=== PATIENT | male | born 1975 | race Caucasian/White ===

== ENCOUNTER 2024-07-13 05:10 | Emergency (ER) | payer BC, SELFPAY ==
[2024-07-13 05:14] VITALS: BP 132/87
[2024-07-13 05:18] VITALS: BP 132/87
--- NOTE | 2024-07-13 06:13 | ED.GENMED ---
History of Present Illness
<Anne Phan MD, Resident - Last Filed: 07/13/24 08:20>
General
Chief Complaint: Breathing Problem
Source: patient and family
Exam Limitations: none
Time Seen by Provider: 07/13/24 06:00
Travel History
Do you have any symptoms of coronavirus? Fever > 100 degrees, chills, cough, shortness of breath, sore throat, loss of taste or smell, muscle aches, or headache?: No
History of Present Illness
History of Present Illness:
This is a 49 year old male patient with PMH of GERD who presents to the hospital with concerns of an ongoing cough for the past 3 weeks. He reports that his cough started three weeks ago which was associated with 'brownish' phlegm. He denies any
history of fever, chills, or abdominal pain. He also states that he sometimes woke up at night and felt as though he was gasping for air which he has never experienced before. This prompted him to go to his PCP where he states he was given a
'penicillin' but did not provide much relief. After a week, he went back to his PCP who prescribed him a course of steroids which also did not help him much. 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
symptoms. He denies any history of travel.
Past History
<Anne Phan MD, Resident - Last Filed: 07/13/24 08:20>
Past History
ED Past Medical History: GERD
ED Past Surgical History: Orthopedic and Other (R clavical repair with screws and plate)
Social History
Tobacco: Non-smoker
Alcohol: Occasional
Personal:
Living: with family
Employment: Employed
Review of Systems
<Anne Phan MD, Resident - Last Filed: 07/13/24 08:20>
Review of Systems
Allergies reviewed?: Yes
Constitutional: Denies fever or chills
Respiratory: Reports cough
ABD/GI: Denies abdominal pain, nausea, vomiting, diarrhea or constipated
Phy Exam
<Anne Phan MD, Resident - Last Filed: 07/13/24 08:20>
General Physical Exam
General Presentation: no apparent distress
Eye Exam
Eye Exam: EOMI
Cardiovascular Exam
Cardiovascular Exam: regular rate/rhythm
Heart Sounds: normal
Pulmonary Exam
Pulmonary Exam: lungs clear
Cough: productive cough
Gastrointestinal Exam
Gastrointestinal Exam: non tender, soft and non distended
Neurological Exam
Neurological Exam: oriented x3
Musculoskeletal Exam
Musculoskeletal Exam: no edema
Skin Exam
Skin Exam: warm/dry
Psychiatric Exam
Psychiatric Exam: normal mood/affect
Scores
<Anne Phan MD, Resident - Last Filed: 07/13/24 08:20>
Heart Failure Risk
Heart Failure Risk Score: Not Applicable
Course
<Anne Phan MD, Resident - Last Filed: 07/13/24 08:20>
Orders/Labs/Results
Orders:
Orders
07/13/24 05:32
Chest [CR Chest - 2 Views ] Urgent
Comment:
Reason For Exam: cough
07/13/24 06:36
Ipratropium/Albuterol Sulfate [Duoneb] 3 ml INH R NOW ONE
07/13/24 06:41
Electrocardiogram (*1) Urgent
Reason for Study: Shortness of Breath
EKG- Treatment ONCE
07/13/24 06:52
Complete Blood Count/With Diff Urgent
Comprehensive Metabolic Panel Urgent
Troponin I Urgent
Abnormal Lab Results
07/13/24
06:52
MCHC 32.3 L g/dL
(33.0-37.0)
Absolute Lymphs (auto) 1.1 L 10^3/uL
(1.2-3.4)
Immature Gran % 0.6 H %
(0-0.5)
Lymphocytes % 15.5 L %
(20.5-51.1)
Chloride 108 H mmol/L
(98-107)
Glucose 110 H mg/dl
(70-99)
Total Protein 5.9 L g/dl
(6.3-8.2)
07/13/24 06:52
07/13/24 06:52
Vital Signs
Initial and Last Documented VS:
Initial Vital Signs
Pulse Resp BP Pulse Ox
63 18 132/87 98
07/13/24 05:14 07/13/24 05:14 07/13/24 05:14 07/13/24 05:14
Last Documented Vital Signs
Temp Pulse Resp BP Pulse Ox
97.8 F 85 16 126/74 98
07/13/24 05:18 07/13/24 07:54 07/13/24 07:54 07/13/24 07:54 07/13/24 07:54
<Pete Bryant, DO - Last Filed: 07/13/24 07:45>
Orders/Labs/Results
Orders:
Orders
07/13/24 05:32
Chest [CR Chest - 2 Views ] Urgent
Comment:
Reason For Exam: cough
07/13/24 06:36
Ipratropium/Albuterol Sulfate [Duoneb] 3 ml INH R NOW ONE
07/13/24 06:41
Electrocardiogram (*1) Urgent
Reason for Study: Shortness of Breath
EKG- Treatment ONCE
07/13/24 06:52
Complete Blood Count/With Diff Urgent
Comprehensive Metabolic Panel Urgent
Troponin I Urgent
Abnormal Lab Results
07/13/24
06:52
MCHC 32.3 L g/dL
(33.0-37.0)
Absolute Lymphs (auto) 1.1 L 10^3/uL
(1.2-3.4)
Immature Gran % 0.6 H %
(0-0.5)
Lymphocytes % 15.5 L %
(20.5-51.1)
Chloride 108 H mmol/L
(98-107)
Glucose 110 H mg/dl
(70-99)
Total Protein 5.9 L g/dl
(6.3-8.2)
07/13/24 06:52
07/13/24 06:52
Vital Signs
Initial and Last Documented VS:
Initial Vital Signs
Pulse Resp BP Pulse Ox
63 18 132/87 98
07/13/24 05:14 07/13/24 05:14 07/13/24 05:14 07/13/24 05:14
Last Documented Vital Signs
Temp Pulse Resp BP Pulse Ox
97.8 F 85 16 126/74 98
07/13/24 05:18 07/13/24 07:54 07/13/24 07:54 07/13/24 07:54 07/13/24 07:54
<Anne Phan MD, Resident - Last Filed: 07/13/24 08:20>
*Critical Care Note
Total Time (30-74mins, 75-104mins- exclusive of procedures): Not Applicable
<Pete Bryant DO - Last Filed: 07/13/24 07:45>
*EKG
Interpreted by ED Provider?: Yes
EKG Intrepretation Date: 07/13/24
Interpretation: normal (Normal sinus rhythm, ventricular rate 62 bpm, normal axis, no STEMI)
<Anne Phan MD, Resident - Last Filed: 07/13/24 08:20>
Update Note
Update Note:
His EKG and CXR were unremarkable. CBC and CMP/trop with insignificant findings. Started on Duonebs with noted improvement. Discussed with patient about discharing with BALTA and LABA and making sure to rinse mouth after Advair use to prevent oral
thrush. F/u with PCP in 1 week.
ED Attending Note
<Anne Phan MD, Resident - Last Filed: 07/13/24 08:20>
-
Portions of this chart may have been created with voice recognition software.� Occasional wrong word or��sound alike� substitutions may have occurred due to the inherent limitations of voice recognition software.
<Pete Bryant, DO - Last Filed: 07/13/24 07:45>
ED Attending Note
Patient seen and examined by attending physician: Yes
I performed a history and physical exam of patient and discussed management with resident, I reviewed resident's note and agree with documented findings and plan of care.: Yes
ED Attending Note:
I have seen and evaluated the patient with a [id number] encounter. I have spoken to the resident and involved in the medical history, the physical exam, medical decision making.
Evaluation and management service: agree unless noted differently below.
Results interpretation: agree unless noted differently below.
Focused HPI: 49-year-old male presenting with viral URI symptoms for the past several weeks. He has seen his primary care doctor twice and has been on antibiotics and steroids. Patient does acknowledge that similar symptoms did improve. On the
initial HPI for the resident, patient denied any chest pain. However, on my HPI, patient does acknowledge that he has had small amount of chest pressure that appear to be nonexertional
Patient states cough is worse when he lays down and the productive aspect of the clears with the day
Physical exam: Sitting in bed comfortably. Mild postnasal drip. No stridor. Lungs clear. Mild bronchospastic cough noted. No leg edema. Heart regular rate and rhythm
Medical Decision Making: Given ongoing symptoms, will obtain chest x-ray. Given the chest discomfort, will give troponin. Doubt ACS given not exertional component. Screening EKG is nonischemic. Will give DuoNeb and assess for symptomatic relief.
Patient will likely require inhaled steroid or possibly steroid taper
Discharge Plan
Departure
Patient Disposition: Home (Routine Discharge)
Date of Disposition: 07/13/24
Time of Disposition: 07:37
Patient with high blood pressure during this ER visit?: No
Discharge Problem:
Acute bronchospasm
Instructions: Acute Bronchitis, Adult (DC)
Prescriptions:
New
fluticasone propion-salmeterol [Advair Diskus] 250-50 mcg/dose blister with device
1 inh inhalation BID Qty: 60 0RF
albuterol sulfate 90 mcg/actuation HFA aerosol inhaler
2 puff inhalation Q6H PRN (Reason: shortness of breath or wheezing) Qty: 6.7 0RF
Referrals:
Shilo Garcia MD [Family Provider] -
Activity Restrictions/Additional Instructions:
If encountering any severe ongoing symptoms such as high grade fever or severe abdominal pain, please contact your PCP or arrive to ED.
Follow up with PCP in 1 week.
Interventions
Interventions:
*Risk Screen - Suicide Last Done: 07/13/24 05:14
*General Assessment Last Done: 07/13/24 05:14
*Neglect/Abuse Screening Last Done: 07/13/24 05:31
ED- Fall Risk Assessment Last Done: 07/13/24 05:31
*ED COVID-19 Vaccine History Last Done: 07/13/24 05:19
*Nursing Disposition Last Done: 07/13/24 07:54
ED- Cardiac Assessment Last Done: 07/13/24 05:31
ED- Pulmonary Assessment Last Done: 07/13/24 05:31
Discharge Date and Time
Discharge Date/Time: 07/13/24 08:04
Print Language: ICELANDIC
[2024-07-13] MEDS: DUONEB 3 ML INH (06:49)
[2024-07-13 07:12] LABS: % Basophils 0.4 % (0-2); % Eosinophils 1.5 % (0-6); % Immature Granulocytes 0.6 % (0-0.5); % Lymphocytes 15.5 % (20.5-51.1); % Monocytes 7.8 % (1.7-9.3); % Neutrophils 74.2 % (42.2-75.2); Absolute Eosinophils 0.1 10^3/uL (0-0.7); Absolute Lymphocytes 1.1 10^3/uL (1.2-3.4); Absolute Monocytes 0.6 10^3/uL (0.1-0.6); Absolute Neutrophils 5.3 10^3/uL (1.4-6.5); Hematocrit 43.3 % (39.0-52.0); Mean Corp Hgb Conc. 32.3 g/dL (33.0-37.0); Mean Corpuscular Hgb 28.8 pg (27.0-31.0); Mean Corpuscular Volume 89.1 fL (80.0-94.0); Mean Platelet Volume 9.7 fL (7.4-10.4); Nucleated Red Blood Cells % 0 % (-); Platelet Count 191 10^3/uL (130-400); Red Blood Cell Count 4.86 10^6/uL (4.70-6.10); Red Cell Dist. Width 12.6 % (11.5-14.5); White Blood Cell Count 7.2 10^3/uL (4.8-10.8)
[2024-07-13 07:16] LABS: Albumin 3.9 g/dl (3.5-5.0)
[2024-07-13 07:28] LABS: ALT (SGPT) 45 U/L (0-50); AST (SGOT) 25 U/L (17-59); Alkaline Phosphatase 71 U/L (38-126); Blood Urea Nitrogen 18 mg/dl (9-20); Carbon Dioxide 24 mmol/L (22-30); Chloride 108 mmol/L (98-107); Estimated Creatinine Clearance 121 ml/min; Glucose 110 mg/dl (70-99); Potassium 4.8 mmol/L (3.5-5.1); Sodium 142 mmol/L (135-145); Total Bilirubin 0.4 mg/dl (0.2-1.3); Total Protein 5.9 g/dl (6.3-8.2); eGFR > 60.00
[2024-07-13 07:33] LABS: Troponin I < 0.012 ng/ml
[2024-07-13 07:54] VITALS: BP 126/74
== END 2024-07-13 08:04 | disposition home or self-care (01) ==
LOC: EMR 05:10
PROVIDERS: EMERGENCY PHYSICIAN Student in an Organized Health Care Education/Training Program; FAMILY PHYSICIAN Internal Medicine
DX: J98.01 Acute bronchospasm (principal); R07.89 Other chest pain; K21.9 Gastro-esophageal reflux disease without esophagitis
CPT/HCPCS: 94640; 99285; 71046; 80053; 84484; 85025; 93005

== ENCOUNTER 2024-11-04 12:04 | Emergency (ER) | payer BC, SELFPAY ==
[2024-11-04 12:19] VITALS: BMI 29.3
[2024-11-04] MEDS: DILAUDID 0.5 MG IV ×2 (12:21→12:55)
--- NOTE | 2024-11-04 12:22 | ED.GENMED ---
History of Present Illness
General
Chief Complaint: Fall
Source: patient
Exam Limitations: none
Time Seen by Provider: 11/04/24 12:14
History of Present Illness
History of Present Illness:
49-year-old male fell off a piece of equipment. He pushed himself off to avoid landing on sharp metal. Hit the top of his head but mostly complaining of bilateral wrist and hand pain. No chest pain no abdominal pain no neck pain patient got up
and walked. Pain is severe in nature. Last tetanus 2018.
Past History
Past History
ED Past Medical History: GERD
ED Past Surgical History: Orthopedic and Other (R clavical repair with screws and plate)
Social History
Tobacco: Non-smoker
Alcohol: Occasional
Personal:
Living: with family
Employment: Employed
Review of Systems
Review of Systems
All Other Systems: Not applicable
Respiratory: Reports no symptoms
Cardiac: Reports no symptoms
ABD/GI: Reports no symptoms
Phy Exam
Physical Exam
Physical Exam:
TRAUMA EXAM:
VITAL SIGNS: Vital signs reviewed, cooperative
DISTRESS: No active disease
EYES: Pupils reactive, no orbital trauma
NOSE: No deformity or epistaxis
FACE AND SCALP: Mild tenderness right superior scalp with no hematoma or swelling. No facial trauma.
NECK: Collar in place
BACK: Pelvis stable to compression
RESPIRATORY: No distress, breath sounds normal, no tender chest wall
CARDIAC: No murmur, pulses equal and strong
ABDOMEN: Soft nontender bowel sounds normal
SKIN: Skin intact no bleeding, color normal
EXTREMITIES: Tenderness and deformity to the right wrist. Good capillary refill distal pulses. Proximal right forearm nontender. Right shoulder no significant tenderness. Left arm unremarkable towards the left wrist and hand. Mild tenderness to
the wrist left wrist. Deformity to the left hand
NEUROLOGICAL: Alert, oriented, no motor deficits
PSYCH: Mood affect normal
Course
Orders/Labs/Results
Orders:
Orders
11/04/24 12:17
Cardiac Monitoring- Treatment ONCE
11/04/24 12:18
CT Cervical Spine W/o Iv Contr Urgent
Comment:
Reason For Exam: trauma
CT Chest/abd/pel W Iv Cont Urgent
Reason For Exam: trauma
CT Head W/o Iv Contrast Urgent
Comment:
Reason For Exam: trauma
IV Insert/Care/Rem.- Treatment PRN
0.9% Sodium Chloride 1000 ml [Nss] 1,000 ml IV BOLUS
Forearm, Left 2 View [CR Forearm - Left 2 View] Urgent
Comment:
Reason For Exam: trauma
Forearm, Right 2 View [CR Forearm - Right 2 View] Urgent
Comment:
Reason For Exam: trauma
Hand, Left 3 View [CR Hand - Left Min 3 Views] Urgent
Comment:
Reason For Exam: trauma
Hand, Right 3 View [CR Hand - Right Min 3 Views] Urgent
Comment:
Reason For Exam: trauma
11/04/24 12:20
Complete Blood Count/With Diff Urgent
Comprehensive Metabolic Panel Urgent
Lipase Urgent
HYDROmorphone [Dilaudid] 0.5 mg .ROUTE .[facility] ONE
11/04/24 12:21
HYDROmorphone [Dilaudid] 0.5 mg IV NOW STA
11/04/24 12:22
CeFAZolin 1 GRAM [Ancef] 1 gram in 5 ml IV NOW
11/04/24 12:55
HYDROmorphone [Dilaudid] 0.5 mg IV NOW STA
11/04/24 13:28
Volar Right-Treatment ONCE
11/04/24 14:09
CR Hand - Left Min 3 Views Urgent
Reason For Exam: post reduction 3/4
11/04/24 14:10
Aluminium Finger Splint Left ONCE
11/04/24 14:11
Ketorolac [Toradol] 15 mg IV NOW STA
11/04/24 14:53
Ampicillin/Sulbactam 3 G [Unasyn] 3 gm 0.9% Sodium Chloride 100 ml [Nss] 100 ml IV NOW
Abnormal Lab Results
11/04/24
12:20
BUN 24 H mg/dl
(9-20)
Glucose 136 H mg/dl
(70-99)
11/04/24 12:20
11/04/24 12:20
Vital Signs
Initial and Last Documented VS:
Initial Vital Signs
Temp Pulse Resp Pulse Ox
98.0 F 71 18 99
11/04/24 12:05 11/04/24 12:05 11/04/24 12:05 11/04/24 12:05
Last Documented Vital Signs
Temp Pulse Resp BP Pulse Ox
98.0 F 70 13 125/82 99
11/04/24 12:05 11/04/24 14:45 11/04/24 14:45 11/04/24 16:26 11/04/24 13:45
Procedures
Joint/Fracture Reduction
Left Fourth Finger:
Anesthesia/sedation: Other (1% digital block)
Injury was: closed
Further treatement: needs re-check only
Post reduction exam: stable
Capillary Refill: normal
*Critical Care Note
Total Time (30-74mins, 75-104mins- exclusive of procedures): 45
Update Note
Update Note:
Patient has been rechecked multiple times. Reviewed CT findings with patient. Copy of report and abnormalities pointed out although no acute traumatic issues.
Copious irrigation of the third digit was done. Significant irrigation. Was reduced without issue. This was after discussion with orthopedics as to the approach. I do not feel he needs transfer to a trauma center at this time. All his primary
issues are stable. He has no head injury significantly no neck issues no chest or abdominal issues. He is remained very stable. The orthopedic issues can be followed up closely. I will ask ID for their opinion on antibiotics given a farm issue.
Will start Augmentin per ID. Will give a dose of Unasyn now. Toradol. Orthopedic follow-up tomorrow. Wound on the volar aspect of the third digit at the PIP joint is relatively small.
ED Attending Note
-
Portions of this chart may have been created with voice recognition software.� Occasional wrong word or��sound alike� substitutions may have occurred due to the inherent limitations of voice recognition software.
Discharge Plan
Departure
Patient Disposition: Home (Routine Discharge)
Date of Disposition: 11/04/24
Time of Disposition: 14:21
Patient with high blood pressure during this ER visit?: Yes
Discharge Problem:
Open dislocation left third PIP joint, Dislocation left fourth PIP joint en dis, Fracture right distal radius, Minor head injury
Instructions: Wound Care (DC), Head Injury in Adults (DC), Finger Dislocation (DC), BLOOD PRESSURE, Wrist Fracture
Prescriptions:
New
amoxicillin-pot clavulanate 875-125 mg tablet
1 tab PO BID Qty: 14 0RF
hydrocodone-acetaminophen 5-325 mg tablet
1 tab PO Q6H PRN (Reason: Pain) Qty: 14 0RF
No Action
fluticasone propion-salmeterol [Advair Diskus] 250-50 mcg/dose blister with device
1 inh inhalation BID Qty: 60 0RF
albuterol sulfate 90 mcg/actuation HFA aerosol inhaler
2 puff inhalation Q6H PRN (Reason: shortness of breath or wheezing) Qty: 6.7 0RF
Referrals:
Michel Gallagher MD [Active] - Tomorrow
Shilo Garcia MD [Family Provider] -
Activity Restrictions/Additional Instructions:
The prescriptions were sent to your pharmacy
See the orthopedist tomorrow or
Interventions
Interventions:
*Risk Screen - Suicide Last Done: 11/04/24 12:05
*General Assessment Last Done: 11/04/24 12:05
*Neglect/Abuse Screening Last Done: 11/04/24 17:00
*ED- Fall Risk Assessment Last Done: 11/04/24 16:45
*ED COVID-19 Vaccine History Last Done: 11/04/24 12:30
*Nursing Disposition Last Done: 11/04/24 16:45
ED-Musculoskeletal Assessment Last Done: 11/04/24 12:30
ED- Neurological Assessment Last Done: 11/04/24 12:30
ED-Skin Assessment Last Done: 11/04/24 12:30
Discharge Date and Time
Discharge Date/Time: 11/04/24 16:45
Print Language: SAMI
[2024-11-04] MEDS: NSS 1000 IV (12:25)
[2024-11-04 12:29] LABS: % Basophils 0.6 % (0-2); % Immature Granulocytes 0.5 % (0-0.5); % Lymphocytes 28.3 % (20.5-51.1); % Monocytes 8.1 % (1.7-9.3); % Neutrophils 61.5 % (42.2-75.2); Absolute Eosinophils 0.1 10^3/uL (0-0.7); Absolute Lymphocytes 1.8 10^3/uL (1.2-3.4); Absolute Monocytes 0.5 10^3/uL (0.1-0.6); Absolute Neutrophils 3.8 10^3/uL (1.4-6.5); Hematocrit 43.9 % (39.0-52.0); Hemoglobin 15.1 g/dL (13.0-18.0); Mean Corp Hgb Conc. 34.4 g/dL (33.0-37.0); Mean Corpuscular Volume 84.3 fL (80.0-94.0); Mean Platelet Volume 9.8 fL (7.4-10.4); Nucleated Red Blood Cells % 0 % (-); Platelet Count 220 10^3/uL (130-400); Red Blood Cell Count 5.21 10^6/uL (4.70-6.10); Red Cell Dist. Width 12.5 % (11.5-14.5); White Blood Cell Count 6.2 10^3/uL (4.8-10.8)
[2024-11-04 12:40] LABS: ALT (SGPT) 40 U/L (0-50); AST (SGOT) 26 U/L (17-59); Albumin 4.4 g/dl (3.5-5.0); Alkaline Phosphatase 75 U/L (38-126); Blood Urea Nitrogen 24 mg/dl (9-20); Calcium 9.6 mg/dl (8.4-10.2); Carbon Dioxide 25 mmol/L (22-30); Chloride 107 mmol/L (98-107); Estimated Creatinine Clearance 96 ml/min; Glucose 136 mg/dl (70-99); Lipase 142 U/L (23-300); Potassium 4.6 mmol/L (3.5-5.1); Sodium 139 mmol/L (135-145); Total Bilirubin 0.6 mg/dl (0.2-1.3); Total Protein 6.6 g/dl (6.3-8.2); eGFR > 60.00
[2024-11-04] MEDS: ANCEF 5 IV (13:09)
[2024-11-04] MEDS: TORADOL 15 MG IV (14:45)
[2024-11-04 15:15] VITALS: BP 133/79
[2024-11-04] MEDS: UNASYN IV (15:15)
[2024-11-04 16:26] VITALS: BP 125/82
== END 2024-11-04 16:45 | disposition home or self-care (01) ==
LOC: EMR 12:04
PROVIDERS: EMERGENCY PHYSICIAN Emergency Medicine; FAMILY PHYSICIAN Internal Medicine
DX: S52.501A Unspecified fracture of the lower end of right radius, initial encounter for closed fracture (principal); S63.283A Dislocation of proximal interphalangeal joint of left middle finger, initial encounter; S63.285A Dislocation of proximal interphalangeal joint of left ring finger, initial encounter; S61.203A Unspecified open wound of left middle finger without damage to nail, initial encounter; W19.XXXA Unspecified fall, initial encounter
CPT/HCPCS: 26770 ×2; 96374; 96375; 96376; 96361; 29125; 70450; 71260; 72125; 73090; 73130; 74177; 80053; 83690; 85025; 99291; Q9967

== ENCOUNTER 2025-04-26 20:50 | Inpatient (IN) | payer BC, SELFPAY ==
[2025-04-26] VITALS (7 sets, daily range): BP systolic 111–142; BP diastolic 72–89; BMI 27.8; BMI 28.6
[2025-04-26 15:07] LABS: Glucose - Point of Care 147 mg/dl (70-99)
[2025-04-26 16:05] LABS: Urine Character Cloudy (Clear)
[2025-04-26 16:46] LABS: Urine Red Blood Cell 16-20 /HPF (0-2); Urine White Cell 30-40 /HPF (0-5)
--- NOTE | 2025-04-26 16:57 | ED.GENMED ---
History of Present Illness
General
Chief Complaint: Urinary Symptoms
Source: patient
Time Seen by Provider: 04/26/25 16:49
History of Present Illness
History of Present Illness:
50-year-old male presents to the emergency room complaining of fever, chills, urinary frequency, dysuria as well as lower abdominal pain. Patient feels pain in his rectum as well. No nausea or vomiting. Patient denies any history of urinary tract
infections. He denies any previous abdominal surgery. He has been taking Tylenol and ibuprofen for symptoms. Patient states he urinated 8 times just in the past hour.
Past History
Past History
ED Past Medical History: GERD
ED Past Surgical History: Orthopedic and Other (R clavical repair with screws and plate)
Social History
Tobacco: Non-smoker
Alcohol: Occasional
Personal:
Living: with family
Employment: Employed
Phy Exam
Physical Exam
Physical Exam:
General: Awake, Alert, Oriented X3. No acute distress.
Vitals: unremarkable
Head: Atraumatic
Eyes: Pupils equal, EOMI
Throat: Airway intact, no exudates
Neck: Trachea midline
Lungs: Clear and equal b/l
Heart: Regular rate, no murmurs
Abd: Soft, tender to palpation bilateral lower abdomen, No pulsatile mass
Back: No CVA tenderness to percussion
Rectal:
Neuro: Nonfocal
Skin: Warm, dry, no rash
Extremities: pulses equal b/l, no edema
Course
Orders/Labs/Results
Orders:
Orders
04/26/25 15:11
Urinalysis Reflex To Culture Urgent
Date Specimen was Collected: 04/26/25
Time Specimen was Collected: 15:09
Urine Microscopic Reflex Cult Urgent
Urine Culture Urgent
JULIO Source: U
Specimen Description:
Date Specimen was Collected: 04/26/25
Time Specimen was Collected: 15:09
04/26/25 16:57
CT Abd/pelvis W Iv Cont Urgent
Comment:
Reason For Exam: lower abd pain/pelvic pain
04/26/25 16:59
0.9% Sodium Chloride 1000 ml [Nss] 1,000 ml IV BOLUS
Ketorolac [Toradol] 15 mg IV NOW STA
Phenazopyridine HCl [Pyridium] 200 mg PO NOW STA
04/26/25 17:10
Basic Metabolic Panel Urgent
Complete Blood Count/With Diff Urgent
04/26/25 19:25
HYDROmorphone [Dilaudid] 1 mg IV NOW STA
04/26/25 19:46
CefTRIAXone [Rocephin] 2,000 mg IV NOW STA
04/26/25 19:47
Sterile Water [Sterile Water For Injection] 20 ml .ROUTE .[facility]
Abnormal Lab Results
04/26/25 04/26/25 04/26/25
15:06 15:11 17:10
RBC 4.69 L 10^6/uL
(4.70-6.10)
MPV 10.6 H fL
(7.4-10.4)
Absolute Neuts (auto) 7.4 H 10^3/uL
(1.4-6.5)
Absolute Lymphs (auto) 0.8 L 10^3/uL
(1.2-3.4)
Neutrophils % 82.6 H %
(42.2-75.2)
Lymphocytes % 8.9 L %
(20.5-51.1)
Chloride 108 H mmol/L
(98-107)
Glucose 113 H mg/dl
(70-99)
Urine Ketones 1+ A
(Negative)
Ur Occult Blood Reflex 4+ A
(Negative)
Urine Nitrite (Reflex) Positive A
(Negative)
Leukocyte Esterase Rfl 3+ A
(Negative)
Urine RBC 16-20 A /HPF
(0-2)
Urine WBC (Reflex) 30-40 A /HPF
(0-5)
Urine Bacteria (Reflex) Moderate A
(Negative)
Urine Albumin (Reflex) 2+ A
(Neg - Trace)
POC Glucose 147 H mg/dl
(70-99)
04/26/25 17:10
04/26/25 17:10
Vital Signs
Initial and Last Documented VS:
Initial Vital Signs
Temp Pulse Resp BP Pulse Ox
98.8 F 83 16 122/82 98
04/26/25 15:05 04/26/25 15:05 04/26/25 15:05 04/26/25 15:05 04/26/25 15:05
Last Documented Vital Signs
Temp Pulse Resp BP Pulse Ox
98.2 F 83 16 128/89 98
04/26/25 18:39 04/26/25 15:05 04/26/25 15:05 04/26/25 18:29 04/26/25 19:30
MDM/Problems Addressed
Differential Diagnosis Includes:
Prostatitis, diverticulitis, urinary tract infection, kidney stone
MDM/Problems Addressed:
Patient presents with significant rectal and lower abdominal pain, dysuria. Has had fevers at home patient appears uncomfortable. Has significant tenderness CT of the abdomen pelvis shows enlarged prostate but no other acute abnormalities. Given
how uncomfortable the patient is and how he looks unwell will initiate IV antibiotics and hospitalize.
*Radiology
Radiology exam reviewed: radiology read reviewed
*Pulse Oximetry
SaO2: 98
Oxygen Mode of Delivery: Room air
Patient hypoxic: no
*Critical Care Note
Total Time (30-74mins, 75-104mins- exclusive of procedures): Not Applicable
ED Attending Note
-
Portions of this chart may have been created with voice recognition software.� Occasional wrong word or��sound alike� substitutions may have occurred due to the inherent limitations of voice recognition software.
Discharge Plan
Departure
Patient Disposition: Admit
Date of Disposition: 04/26/25
Time of Disposition: 19:55
Admit to: Med/Surg
Presentation/result/management discussed w/ accepting MD/DO: Hospitalist
Condition: Good
Discharge Problem:
Prostatitis
Prescriptions:
No Action
fluticasone propion-salmeterol [Advair Diskus] 250-50 mcg/dose blister with device
1 inh inhalation BID Qty: 60 0RF
albuterol sulfate 90 mcg/actuation HFA aerosol inhaler
2 puff inhalation Q6H PRN (Reason: shortness of breath or wheezing) Qty: 6.7 0RF
amoxicillin-pot clavulanate 875-125 mg tablet
1 tab PO BID Qty: 14 0RF
hydrocodone-acetaminophen 5-325 mg tablet
1 tab PO Q6H PRN (Reason: Pain) Qty: 14 0RF
Referrals:
Shilo Garcia MD [Family Provider, Internal Medicine]
Interventions
Interventions:
*Risk Screen - Suicide Last Done: 04/26/25 15:05
*General Assessment Last Done: 04/26/25 17:14
*Neglect/Abuse Screening Last Done: 04/26/25 15:05
*ED- Fall Risk Assessment Last Done: 04/26/25 17:14
*ED COVID-19 Vaccine History Last Done: 04/26/25 17:14
ED-Male Genitourinary Assessment Last Done: 04/26/25 17:16
Discharge Date and Time
Print Language: FRENCH
[2025-04-26] MEDS: NSS 1000 IV (17:11)
[2025-04-26] MEDS: TORADOL 15 MG IV (17:11)
[2025-04-26 17:22] LABS: Hematocrit 40.4 % (39.0-52.0); Hemoglobin 13.4 g/dL (13.0-18.0); Mean Corp Hgb Conc. 33.2 g/dL (33.0-37.0); Mean Corpuscular Volume 86.1 fL (80.0-94.0); Nucleated Red Blood Cells % 0 % (-); Platelet Count 141 10^3/uL (130-400); Red Cell Dist. Width 12.9 % (11.5-14.5)
[2025-04-26 17:43] LABS: Blood Urea Nitrogen 14 mg/dl (9-20); Calcium 9.1 mg/dl (8.4-10.2); Carbon Dioxide 26 mmol/L (22-30); Chloride 108 mmol/L (98-107); Estimated Creatinine Clearance 95 ml/min; Glucose 113 mg/dl (70-99); Potassium 3.8 mmol/L (3.5-5.1); Sodium 139 mmol/L (135-145); eGFR > 60.00
[2025-04-26] MEDS: DILAUDID 1 MG IV (19:33)
[2025-04-26] MEDS: ROCEPHIN 2000 MG IV (19:53)
--- NOTE | 2025-04-26 19:55 | HPS.HSE ---
Family Physician
-
Family Physician: Shilo Garcia
Chief Complaint
-
dysuria, frequency, urgency, abdominal pain
History of Present Illness
50-year-old male with no significant PMH presents to the emergency room complaining of fever, chills, urinary frequency, dysuria,urgency since Saturday night. he spikes fever of 101 at home. he complained of lower abdominal as well as back pain. he
felt like he was not emptying bladder fully. Patient feels pain in his rectum as well. No nausea or vomiting. he was taking advil and Tylenol prn for pain and fever. denied KUMAR, dizzy or syncope.denied chest pain, sob, cough,congestion. denied
diarrhea but stated constipation.
concern for prostatitis. received a dose of ceftriaxone in ER. admitting for further management.
Medical History
Past Medical History
Past Medical History: Reports Other
Additional Past Medical History:
Nephrolithiasis, GERD, concussion
Past Surgical History: Reports Other
Additional Past Surgical History:
Right shoulder surgery, right femur surgery, left rotator cuff repair
Social History
Tobacco: Former Smoker
Alcohol: Occasional
Drug: None
Personal:
Living: With Family
Family History
Family History: Not pertinent
Allergies / Home Medications
Allergies reflects when Allergies were last updated in [facility].
Home Medications with original date entered in [facility]
Allergy/Medication List:
Allergies
Allergy/AdvReac Type Severity Reaction Status Date / Time
No Known Allergies Allergy Verified 04/26/25 15:08
Home Medications
albuterol sulfate 90 mcg/actuation aerosol inhaler 2 puff inhalation Q6H PRN shortness of breath or wheezing #6.7 grams 07/13/24
fluticasone 250 mcg-salmeterol 50 mcg/dose blistr powdr for inhalation (Advair Diskus) 1 inh inhalation BID #60 ea 11/18/24
amoxicillin 875 mg-potassium clavulanate 125 mg tablet 1 tab PO BID #14 tabs 11/04/24
hydrocodone 5 mg-acetaminophen 325 mg tablet 1 tab PO Q6H PRN Pain #14 tabs 11/04/24
Review of Systems
-
Constitutional: Reports Fever
EENT: Reports No Symptoms
Respiratory: Reports No Symptoms
Cardiac: Reports No Symptoms
Abdomen/GI: Reports Abdominal Pain and Constipated
: Reports Dysuria, Frequency, Difficulty Voiding and Urgency
Musculoskeletal: Reports No Symptoms
Skin: Reports No Symptoms
Neurological: Reports No Symptoms
Endocrine: Reports No Symptoms
Hematologic/Lymphatic: Reports No Symptoms
Psych: Reports No Symptoms
Physical Exam
Vital Signs
Vital Signs
Temp Pulse Resp BP Pulse Ox
98.2 F 83 16 128/89 98
04/26/25 18:39 04/26/25 15:05 04/26/25 15:05 04/26/25 18:29 04/26/25 19:30
Physical Exam
General: Well Developed, Well Nourished and No Apparent Distress
HEENT: NormoCephalic, Moist mucous membranes and Atraumatic
Respiratory: Clear
Cardiac: S1/S2 and Regular Rhythm; No Murmur or Rub
GI: Soft, Non Tender, Non Distended and Normal Bowel Sounds; No Organomegaly
Rectal: Deferred by Provider
Musculoskeletal: No Clubbing, No Cyanosis and No Edema
Skin: No Rash
Neuro: AO x 3 and Nonfocal/grossly intact
Psych: Calm
Laboratory Results
-
04/26/25 17:10
04/26/25 17:10
Data Reviewed
-
CT Scan: Report Reviewed by me
Lab Data: Labs Reviewed by me
Impression/Plan
-
# Prostatitis
- CT with enlarged prostate
- Ceftriaxone continue
- Tylenol as needed for fever or pain
- Flomax added
- CT abdomen pelvis with impression Moderate diffuse bladder wall thickening likely at least partially due to limited distention. Cystitis and bladder outlet obstruction not excluded. New Moderate prostate hypertrophy. Progressed.
Mild diverticulosis. No evidence of acute diverticulitis. Stable Left-sided parapelvic renal cysts. Stable Small fat-containing umbilical hernia. No evidence of incarceration or strangulation. Stable Stable proximal left femur bony lesion. Stable
from 2020 suggesting it is benign. 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
#DVT prophylaxis
-Lovenox
#CODE status
-full code
--- NOTE | 2025-04-26 20:03 | W.PN.UPDATE ---
Update Note
Progress Note Update
Patient seen in conjunction with LEAD MAINTENANCE TECHNICIAN. I agree with the findings on history and physical. I concur with assessment and plan listed otherwise.
Briefly this is a 50-year-old with past medical history significant for asthma who presents to the emergency department with fever, chills, urinary frequency, dysuria as well as lower abdominal pain. Patient reports onset of symptoms on Saturday
with fever chills urinary frequency. He reports lower abdominal pain groin pain as well as perineal and perirectal pain. He also reported ureteral discomfort/dysuria. Denies any hematuria. Reports history of urethral strictures secondary to
trauma and dilations. Denies prior UTIs. He denies any recent instrumentation. Denies any recent biopsy or surgical procedure. He had 1 episode of nephrolithiasis over 20 years ago. Currently denies any nausea vomiting reports good appetite.
His last antibiotic use was in October for skin and soft tissue infection of the hands.
In the emergency department he was afebrile, blood pressure was 130/90 with a pulse of 83 and he was satting 98% on room air. CBC was unremarkable. Electrolyte BUN/creatinine were normal. CT of the abdomen pelvis showing moderate diffuse bladder
wall thickening likely at least partially due to limited distention. Cystitis and bladder outlet obstruction not excluded. New Moderate prostate hypertrophy. Progressed.
Assessment and plan
1 acute prostatitis -likely on the basis of history of urinary strictures as well as recent worsening BPH. No instrumentation. Has no high risk behavior.
- admit to med/surg inpatient
- urine cultures sent
- blood cultures if febrile
- no known risk for resistance and patient stable. Continue IV ceftriaxone
- Tamsulosin for BPH
- Pain control
- regular diet
DVT PPX - lovenox sq
Code status - Full Code
[2025-04-26] MEDS: ULTRAM 100 MG PO (22:36)
[2025-04-26] MEDS: FLOMAX 0.4 MG PO (22:36)
[2025-04-26] MEDS: TYLENOL 650 MG PO (22:37)
[2025-04-27 03:00] VITALS: BP 122/60
[2025-04-27 06:00] VITALS: BMI 28.6
[2025-04-27] MEDS: TYLENOL 650 MG PO ×2 (06:17→19:53)
[2025-04-27 07:25] VITALS: BP 107/66
[2025-04-27] MEDS: FLOMAX 0.4 MG PO (09:54)
[2025-04-27] MEDS: ULTRAM 100 MG PO (10:48)
[2025-04-27] MEDS: LEVAQUIN 150 IV (11:59)
[2025-04-27] MEDS: IMITREX 50 MG PO (12:16)
[2025-04-27] MEDS: COMPAZINE 10 MG IV (13:34)
--- NOTE | 2025-04-27 13:54 | W.PN.HOSP.TC ---
Today's Communication/Plan
-
ID evaluation
change abx to levaquin
Assessment / Plan
Assessment / Plan
CT a/p
Moderate diffuse bladder wall thickening likely at least partially due to limited distention. Cystitis and bladder outlet obstruction not excluded. New
Moderate prostate hypertrophy. Progressed.
Mild diverticulosis. No evidence of acute diverticulitis. Stable
Left-sided parapelvic renal cysts. Stable
Small fat-containing umbilical hernia. No evidence of incarceration or strangulation. Stable
Stable proximal left femur bony lesion. Stable from 2020 suggesting it is benign. 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
# UTI
Possible prostatitis
R/o sepsis
- Complaining of some lower abdominal discomfort/rectal pain. Apparently was spiking fever at home
- UA showing WBC 30-40 RBC 60-20 nitrate positive and moderate bacteriuria
- CT abdomen pelvis showing diffuse bladder wall thickening and prostate enlargement
- In light of deep-seated pain and rectal discomfort question of possible prostatitis.
- Urine cs collected, f/u result
- Was on rocephin, switched to Levaquin
- In light of potential need of longer abx course and f/u need, ID evaluation requested.
# Headache
- Intractable. No reported complicated sign
- Did not improve with dose of Imitrex. Providing IV compazine
- will need neuro imaging if not improved.
DVT prophylaxis-Lovenox
CODE status -full code
Total time spent ; 55 mins
Anticipated Discharge: 24 - 48 hours
Subjective/Interval History
-
Date of Service: April 27, 2025
afebrile overnight
complaining headache
no other issues
Objective Data
-
Vital Signs:
Vital Signs
Temp Pulse Resp BP Pulse Ox
98.9 F 82 18 107/66 96
04/27/25 07:25 04/27/25 07:25 04/27/25 07:25 04/27/25 07:25 04/27/25 07:25
Review of Systems
-
Respiratory: Reports No Symptoms
Cardiac: Reports No Symptoms
Abdomen/GI: Reports No Symptoms
Physical Exam
-
General: No Apparent Distress and Comfortable
HEENT: Negative Oxygen
Respiratory: Clear to Auscultation
Cardiac: Regular Rhythm and S1/S2; Negative Murmur or Rub
GI: Soft, Nontender and Nondistended
Musculoskeletal: No Edema
Neuro: Awake, Alert, Oriented, No Motor Deficits and Nonfocal/Grossly Intact
Psych: Calm
[2025-04-27 15:23] VITALS: BP 132/79
--- NOTE | 2025-04-27 15:38 | CON.ID ---
Consultation
-
Date/Time Consultation Requested: April 27, 2025 1206
Date/Time Consultation Performed: April 27, 2025 1540
Requesting Provider: Dr. Prosper Traore
Performing Provider: Dr. Tracy Zelaya
Reason for Consultation: Rectal pain, possible prostatitis
Chief Complaint / Past History
Chief Complaint
Fever, urine urgency and frequency
History of Present Illness
History obtained from the patient and from his at bedside. 50-year-old male with history of BPH who presented to the hospital April 26 due to 3 to 4-day history of fever and urine symptoms. He he developed acute onset of dysuria, urine
urgency with frequency, not emptying his bladder fully. Also with lower suprapubic pain. No flank pain. Positive fevers up to 101 and chills. On Saturday he noted rectal discomfort. No diarrhea. No history of UTI. In the ER UA positive nitrite,
3+ leukocyte esterase, 30�[address] of the abdomen pelvis shows moderately enlarge prostate which has progressed, moderate diffuse bladder wall thickening. He was started on ceftriaxone then changed to levofloxacin today. Since
being in the hospital urine symptoms are better. No history of UTI.
Past History
Additional Past Medical History:
Asthma
GERD
BPH
Additional Past Surgical History:
Right femur surgery
Left rotator cuff repair
Right shoulder surgery
Allergy History:
No Known Allergies Allergy (Verified 04/26/25 15:08)
Medications Reviewed: Yes
Current Antibiotics:
Levofloxacin
Social History
Tobacco: Former Smoker
Alcohol: Occasional
Personal:
Living: With Family
Employment: Employed ([employer] (d[employer]))
Family History
Family History: Not Pertinent
Review of Systems
Review of Systems
General: Fever, Chills and Change in Appetite
HEENT: Negative Sinus Problems or Headache
Cardiovascular: Negative Chest Pain or Dyspnea
Respiratory: Negative Dyspnea or Cough
Gasteroenterology: Negative Nausea, Vomiting or Diarrhea
Genital / Urological: Dysuria; Negative Hematuria or Flank Pain
Endocrine: Negative Weakness
Skin / Hair / Nails: Negative Rash
All systems: All other systems were reviewed and were negative
Vital Signs
Temp Pulse Resp BP Pulse Ox
98.1 F 90 16 132/79 97
04/27/25 15:23 04/27/25 15:23 04/27/25 15:23 04/27/25 15:23 04/27/25 15:23
Physical Exam
Physical Exam
Constitutional: No Acute Distress and Comfortable
Eyes: No Conjunctival Hemorrhage and Sclera Anicteric
Cardiovascular: Regular Rate and S1/S2
Pulmonary: Clear
Gastrointestinal: Soft, Non Tender, Non Distended and Normal Bowel Sounds
Genito-Urinary: Negative CVA Tenderness
Extremities: Negative Edema
Neurological: AO x 3
Lab / Diagnostic Study Results
04/26/25 17:10
04/26/25 17:10
Abs Immat Gran (auto) 0.0 10^3/uL (0-0.05) 04/26/25 17:10
Absolute Neuts (auto) 7.4 10^3/uL (1.4-6.5) H 04/26/25 17:10
Absolute Lymphs (auto) 0.8 10^3/uL (1.2-3.4) L 04/26/25 17:10
Absolute Monos (auto) 0.5 10^3/uL (0.1-0.6) 04/26/25 17:10
Absolute Basos (auto) 0.0 10^3/uL (0-0.2) 04/26/25 17:10
Immature Gran % 0.3 % (0-0.5) 04/26/25 17:10
Neutrophils % 82.6 % (42.2-75.2) H 04/26/25 17:10
Lymphocytes % 8.9 % (20.5-51.1) L 04/26/25 17:10
Monocytes % 6.0 % (1.7-9.3) 04/26/25 17:10
Eosinophils % 2.0 % (0-6) 04/26/25 17:10
Basophils % 0.2 % (0-2) 04/26/25 17:10
Ur Squamous Epith Cells 3-5 /LPF (Few) 04/26/25 15:11
Microbiology Results
Micro:
04/26/25 15:11 Urine Culture - Pending
Urine
04/26/25 CT a/p: Moderate diffuse bladder wall thickening likely at least partially due to limited distention. Cystitis and bladder outlet obstruction not excluded. New. Moderate prostate hypertrophy. Progressed.
Assessment / Plan
# Acute prostatitis/UTI
- UA +nitrite, 3+LE, 30-40 WBC, 16-20 RBC
- Ucx pending
- Continue levofloxacin 750mg po daily pending Ucx result.
Anticipate 14d course of abx.
[2025-04-27 23:18] VITALS: BP 113/67
[2025-04-28] MEDS: TYLENOL 650 MG PO ×4 (02:26→21:37)
--- NOTE | 2025-04-28 02:37 | PTCARENOTE ---
Pt reports he believes his headaches are 2/2 sinuses and dry environment. Reports blowing nose and post nasal drip. LOAN INSPECTOR covering house contacted, electronic orders ocean spray (refer to [facility]).
[2025-04-28] MEDS: OCEAN, SALINE MIST 1 SPRAYS NASAL ×4 (02:43→21:39)
[2025-04-28 06:00] VITALS: BMI 28.2
[2025-04-28 07:19] VITALS: BP 117/63
[2025-04-28 07:58] LABS: Hematocrit 40.3 % (39.0-52.0); Hemoglobin 13.2 g/dL (13.0-18.0); Mean Corp Hgb Conc. 32.8 g/dL (33.0-37.0); Mean Corpuscular Volume 86.1 fL (80.0-94.0); Platelet Count 163 10^3/uL (130-400); Red Cell Dist. Width 13.0 % (11.5-14.5)
[2025-04-28] MEDS: FLOMAX 0.4 MG PO (08:17)
[2025-04-28] MEDS: LEVAQUIN 750 MG PO (08:17)
[2025-04-28 09:03] LABS: Blood Urea Nitrogen 15 mg/dl (9-20); Calcium 9.0 mg/dl (8.4-10.2); Carbon Dioxide 25 mmol/L (22-30); Chloride 106 mmol/L (98-107); Estimated Creatinine Clearance 107 ml/min; Glucose 99 mg/dl (70-99); Potassium 4.1 mmol/L (3.5-5.1); Sodium 136 mmol/L (135-145); eGFR > 60.00
--- NOTE | 2025-04-28 10:31 | W.PN.HOSP.TC ---
Today's Communication/Plan
-
f/u urine cs susceptibility report
Possible discharge tomorrow
Assessment / Plan
Assessment / Plan
CT a/p
Moderate diffuse bladder wall thickening likely at least partially due to limited distention. Cystitis and bladder outlet obstruction not excluded. New
Moderate prostate hypertrophy. Progressed.
Mild diverticulosis. No evidence of acute diverticulitis. Stable
Left-sided parapelvic renal cysts. Stable
Small fat-containing umbilical hernia. No evidence of incarceration or strangulation. Stable
Stable proximal left femur bony lesion. Stable from 2020 suggesting it is benign. 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
# E. coli UTI
Possible prostatitis
Sepsis ruled out
- Complaining of some lower abdominal discomfort/rectal pain. Apparently was spiking fever at home
- UA showing WBC 30-40 RBC 60-20 nitrate positive and moderate bacteriuria
- CT abdomen pelvis showing diffuse bladder wall thickening and prostate enlargement
- In light of deep-seated pain and rectal discomfort question of possible prostatitis.
- Urine culture growing E. coli, follow-up susceptibility
- Was on rocephin, switched to Levaquin yesterday
- ID evaluated and recommended 2 weeks of antibiotic therapy.
# Headache
- Intractable. No reported complicated sign
- Improved with Compazine
# Vision changes
- Happening with headache, cannot rule out complex migraine
- CT head ruled out any subacute stroke
# Allergic sinusitis
- Episodic in nature ongoing for few years
- Saline nasal spray ordered
- Monitor
DVT prophylaxis-Lovenox
CODE status -full code
Time spent : 55 mins
Anticipated Discharge: Within 24 hours
Subjective/Interval History
-
Date of Service: April 28, 2025
Denies any ongoing severe rectal pain/abdominal discomfort
Afebrile overnight
Headache is resolved
Objective Data
-
Labs:
Laboratory Results
04/28/25
07:08
WBC 6.9
Hgb 13.2
Hct 40.3
Plt Count 163
Sodium 136
Potassium 4.1
Chloride 106
Carbon Dioxide 25
BUN 15
Creatinine 0.8
Glucose 99
Calcium 9.0
Vital Signs:
Vital Signs
Temp Pulse Resp BP Pulse Ox
98.3 F 72 18 117/63 96
04/28/25 07:19 04/28/25 07:19 04/28/25 07:19 04/28/25 07:19 04/28/25 07:19
I&O
04/27/25 04/28/25 04/29/25
06:59 06:59 06:59
Intake Total 600 / 600
Output Total 200 / 200
Balance 400 / 400
Review of Systems
-
Respiratory: Reports No Symptoms
Cardiac: Reports No Symptoms
Abdomen/GI: Reports No Symptoms
Physical Exam
-
General: No Apparent Distress and Comfortable
HEENT: Negative Oxygen
Respiratory: Clear to Auscultation
Cardiac: Regular Rhythm and S1/S2; Negative Murmur or Rub
GI: Soft, Nontender and Nondistended
Musculoskeletal: No Edema
Neuro: Awake, Alert, Oriented, No Motor Deficits and Nonfocal/Grossly Intact
Psych: Calm
--- NOTE | 2025-04-28 14:17 | W.PN.ID1 ---
Date of Service
Date of Service: April 28, 2025
Today's Communication
- Continue levofloxacin 750mg po daily final Ucx data
Assessment / Plan
# Acute prostatitis/UTI
- UA +nitrite, 3+LE, 30-40 WBC, 16-20 RBC
- Ucx E. coli
- Continue levofloxacin 750mg po daily final Ucx data
Anticipate 14d course of po abx.
Chief Complaint
-: UTI
Subjective / Review of Systems
Urine sxs continues to improve.
Vital Signs / Physical Exam
Vital Signs
Vital Signs
Temp Pulse Resp BP Pulse Ox
98.3 F 72 18 117/63 96
04/28/25 07:19 04/28/25 07:19 04/28/25 07:19 04/28/25 07:19 04/28/25 07:19
Physical Exam
Constitutional: No Acute Distress and Comfortable
Cardiovascular: Regular Rate and S1/S2
Pulmonary: Clear
Gastrointestinal: Soft, Non Tender, Non Distended and Normal Bowel Sounds
Genito-Urinary: Negative CVA Tenderness
Extremities: Negative Edema
Objective Data
Lab Data
Lab Results
04/28/25 07:08
04/28/25 07:08
Estimated Creat Clear 107 ml/min 04/28/25 07:08
Most recent labs reviewed.
Micro Results:
04/26/25 15:11 Urine Culture - Preliminary
Urine Escherichia coli
04/26/25 CT a/p: Moderate diffuse bladder wall thickening likely at least partially due to limited distention. Cystitis and bladder outlet obstruction not excluded. New. Moderate prostate hypertrophy. Progressed.
Care Review
Plan reviewed with: Physician (Dr. Mau Traore)
--- NOTE | 2025-04-28 14:29 | CM ---
Patient seen bedside, initial assessment completed. Patient is a 50-year-old male with no significant PMH presents to the emergency room complaining of fever, chills, urinary frequency, dysuria,urgency since Saturday night. he spikes fever of 101
at home. he complained of lower abdominal as well as back pain.
Patient resides w/ spouse and adult daughter and son in a 2[facility], no steps to enter. Patient is independent in all areas, no DME reported. OP therapy last year for broken wrist and finger.
Address, point of contact and insurance verified
PCP: Shilo Garcia
Pharmacy: [facility]
Patient stated he is awaiting cultures and final abx and can d/c home today possibly. Currently on po abx, will need 14 day course per ID
Plan: Home, no needs
[2025-04-28 15:28] VITALS: BP 112/70
[2025-04-28 23:50] VITALS: BP 134/74
[2025-04-29] MEDS: TYLENOL 650 MG PO (04:23)
[2025-04-29] MEDS: OCEAN, SALINE MIST 1 SPRAYS NASAL (04:24)
[2025-04-29 06:00] VITALS: BMI 27.9
[2025-04-29 07:20] VITALS: BP 116/78
[2025-04-29 08:13] LABS: Hematocrit 40.6 % (39.0-52.0); Hemoglobin 13.5 g/dL (13.0-18.0); Mean Corp Hgb Conc. 33.3 g/dL (33.0-37.0); Mean Corpuscular Volume 85.5 fL (80.0-94.0); Platelet Count 180 10^3/uL (130-400); Red Cell Dist. Width 12.7 % (11.5-14.5)
[2025-04-29] MEDS: LEVAQUIN 750 MG PO (08:14)
[2025-04-29] MEDS: FLOMAX 0.4 MG PO (08:14)
[2025-04-29 08:28] LABS: Blood Urea Nitrogen 17 mg/dl (9-20); Calcium 9.4 mg/dl (8.4-10.2); Carbon Dioxide 24 mmol/L (22-30); Chloride 109 mmol/L (98-107); Estimated Creatinine Clearance 107 ml/min; Glucose 103 mg/dl (70-99); Potassium 4.1 mmol/L (3.5-5.1); Sodium 140 mmol/L (135-145); eGFR > 60.00
--- NOTE | 2025-04-29 10:35 | W.PN.ID1 ---
Date of Service
Date of Service: April 29, 2025
Today's Communication
Continue levofloxacin 750mg po daily d4 of 14.
Assessment / Plan
# Acute prostatitis/UTI
- UA +nitrite, 3+LE, 30-40 WBC, 16-20 RBC
- Ucx E. coli pansenstive
- Continue levofloxacin 750mg po daily d4 of 14.
- Discussed potential side effects including tendinitis, C. diff with levofloxacin.
Chief Complaint
-: UTI
Subjective / Review of Systems
Feels much improved.
Vital Signs / Physical Exam
Vital Signs
Vital Signs
Temp Pulse Resp BP Pulse Ox
97.4 F 68 18 116/78 97
04/29/25 07:20 04/29/25 07:20 04/29/25 07:20 04/29/25 07:20 04/29/25 08:30
Physical Exam
Constitutional: No Acute Distress and Comfortable
Cardiovascular: Regular Rate and S1/S2
Pulmonary: Clear
Gastrointestinal: Soft, Non Tender, Non Distended and Normal Bowel Sounds
Genito-Urinary: Negative CVA Tenderness
Extremities: Negative Edema
Objective Data
Lab Data
Lab Results
04/29/25 07:09
04/29/25 07:09
Estimated Creat Clear 107 ml/min 04/29/25 07:09
Most recent labs reviewed.
Micro Results:
04/26/25 15:11 Urine Culture - Final
Urine Escherichia coli
04/26/25 CT a/p: Moderate diffuse bladder wall thickening likely at least partially due to limited distention. Cystitis and bladder outlet obstruction not excluded. New. Moderate prostate hypertrophy. Progressed.
Care Review
Plan reviewed with: Physician (Dr. Mau Traore)
--- NOTE | 2025-04-29 10:56 | CM ---
CM reviewed chart, patient for discharge home, to transport home. Plan home no needs.
Plan; home with , no needs.
--- NOTE | 2025-04-29 12:13 | W.DCSUMMARY ---
Discharge Summary
Discharge Data
Date of Admission: 04/26/25
Date of Discharge: 04/29/25
-
Pending Results: No
Hospital Course
Discharging Physician : Dr Prosper Traore
Disposition : To home
Primary care physician : Dr Shilo Garcia
Principal Discharge diagnosis :
Escherichia coli urinary tract infection and prostatitis
Intractable headache
Vision changes
Allergic sinusitis
Chronic Discharge diagnosis :
None
Physical examination
HEENT: No pallor, cyanosis, or jaundice. Throat clear.
NECK: Supple. No JVD.
RESPIRATORY: Lungs clear to auscultation.
CVS: S1, S2 normal. RRR. No murmur, rub or gallop.
ABDOMEN: Soft, non-tender. No distension. BS+/normal.
EXTREMITIES: No peripheral cyanosis or edema.
DIRECTOR PATIENT ACCOUNTING: AOx3. No focal deficits.
Hospital Course :
Patient is a 50-year-old male with no significant past medical history came to ER with new onset of deep-seated abdominal and rectal pain at times. Patient was having some fever headache as well. Urinalysis showed patient having significant pyuria
and bacteriuria. Patient had a CT abdomen pelvis which showed diffuse bladder wall thickening with enlarged prostate. Patient was started on empiric IV antibiotics and urine cultures were collected. In light of location of pain there was concern
of patient likely having prostatitis as well. ID was involved in care who recommended 2 weeks of antibiotic therapy. Urine culture later grew pansensitive E. coli and based on susceptibility patient was provided 2 weeks of Levaquin therapy.
Patient was provided repeat urinalysis and to follow-up with primary care physician if have persistent bacteriuria/pyuria
Patient was also having intractable headache and vision changes of blurriness. A CT head done and ruled out any hemorrhage/stroke. Patient was provided symptomatic care and had improvement on symptoms. Patient had problem with allergic sinusitis
and potential differential for headache is allergic sinusitis versus complex migraine. Patient asked to follow-up with ENT/neuro based on dominant symptoms if reoccurs.
Important imaging findings :
None
Procedure findings :
None
Discharge Plan
-
Patient Disposition: Home (Routine Discharge)
Discharge Diagnosis/Procedures: UTI, Prostatitis
Condition: Fair
Diet: Regular
Activity: No restrictions
Driving Restrictions: As prior to admission
Bathing Restrictions: OK to Shower
Activity Restrictions/Additional Instructions:
If you are taking antacid, iron, zinc, or Carafate, take these products 6 hours before or 2 hours after levofloxacin.
Referrals:
Shilo Garcia MD [Family Provider, Internal Medicine] - in one week
Prescriptions:
New
levofloxacin 750 mg Tablet
750 mg PO DAILY Qty: 12 0RF
(DME) urinalysis calibration strips
See Rx Instructions .Route .MEDSUPPLY Qty: 1 0RF
Rx Instructions:
UA with reflex Urine culture
Dx; Ecoli UTI, prostatitis
To be done after 2 weeks
Forward result to primary care physician office.
Discharge Orders:
Discharge Patient (As Directed); Ordered 04/29/25
Ordered By: Prosper Traore
Discharge Date and Time
Print Language: MALTESE
== END 2025-04-29 15:47 | disposition home or self-care (01) | DRG 728 ==
LOC: 4 EAST ACU 20:50
PROVIDERS: ADMITTING PHYSICIAN Internal Medicine; ATTENDING PHYSICIAN Hospitalist; CONSULT PHYSICIAN Internal Medicine Infectious Disease; EMERGENCY PHYSICIAN Emergency Medicine; FAMILY PHYSICIAN Internal Medicine
DX: N41.0 Acute prostatitis (principal); N39.0 Urinary tract infection, site not specified; N40.0 Benign prostatic hyperplasia without lower urinary tract symptoms; K57.30 Diverticulosis of large intestine without perforation or abscess without bleeding; K42.9 Umbilical hernia without obstruction or gangrene; J45.909 Unspecified asthma, uncomplicated; K21.9 Gastro-esophageal reflux disease without esophagitis; B96.20 Unspecified Escherichia coli [E. coli] as the cause of diseases classified elsewhere; R51.9 Headache, unspecified; Z79.899 Other long term (current) drug therapy; Z87.891 Personal history of nicotine dependence
CPT/HCPCS: 70450; 74177; 80048; 81003; 81015; 82962; 85025; 85027; 87077; 87086; 87186; 96361; 96374; 96375; 99285; Q9967